=== PATIENT | female | born 1975 | race Caucasian/White ===

== ENCOUNTER → 2017-12-11 | Outpatient (CLI) | payer OTHER ==
--- NOTE | 2017-12-11 18:50 | Diagnostic Imaging Report ---
Exam: Lumbar spine MRI without IV contrast History: Low back pain radiates to the right leg, radiculopathy symptoms. Comparison studies: None Technique: Sagittal and axial T2 , sagittal T1 and IR, axial spin density oblique and coronal T2. Intravenous contrast: None Findings: Number of lumbar vertebral bodies: 5. Alignment: Normal lordosis. No scoliosis. Soft tissues: No T2 hyperintense inflammatory changes. Paraspinal muscles: No signal abnormalities. Well-preserved. No atrophic changes Lower thoracic cord: Normal in signal and morphology. The tip of the conus terminates at the L1 level. Cauda equina: No masses. No arachnoiditis. Vertebrae: No compression fractures, infection or neoplasm. Degenerative changes: L1-L2: No abnormalities L2-L3: No abnormalities L3-L4: Symmetric disc bulge does not result in canal or foraminal stenosis. L4-L5: Symmetric disc bulge does not result in significant canal or foraminal stenosis. L5-S1: Asymmetric right disc bulge resulting narrowing of the right subarticular zone and about the right S1 nerve root. Additional findings: A 5 mm T2 hyperintensity in the interpolar left kidney may be a cyst but is too small to accurately characterize. IMPRESSION: 1. Asymmetric right L5-S1 disc bulge abuts the right S1 nerve root. Findings could be correlated for S1 radiculopathy symptoms. 2. No other significant lumbar spine abnormalities. Signed by: Dr. Karl Hardy M.D. on 12/11/2017 6:46 PM
== END ==
LOC: MRI 16:05
PROVIDERS: ATTEND Family Medicine
DX: M54.16 Radiculopathy, lumbar region (principal)
CPT/HCPCS: 72148